=== PATIENT | male | born 1985 | race Two or more races ===

== ENCOUNTER 2025-02-05 22:32 | Emergency (ER) | payer SELFPAY ==
[~2025-02-05 22:32] MED LIST: Tetracaine HCl/PF 0.5% 4 ML Bottle ONE
[2025-02-05] MEDS: Tetracaine HCl/PF 0.5% 4 ML Bottle EYEBOTH ONE (22:40)
[2025-02-06] MEDS: Fluorescein 1 MG Ophth Strip EYEBOTH ONE ×2 (00:21)
[2025-02-06] MEDS: Polyvinyl Alcohol 1.4% Ophth Soln 15 ML Bottle EYEBOTH ONE (01:48)
== END 2025-02-06 01:59 | disposition home or self-care (01) ==
LOC: MW.ED 22:32
DX: T26.92XA Corrosion of left eye and adnexa, part unspecified, initial encounter (principal); T26.91XA Corrosion of right eye and adnexa, part unspecified, initial encounter; S05.02XA Injury of conjunctiva and corneal abrasion without foreign body, left eye, initial encounter; S05.01XA Injury of conjunctiva and corneal abrasion without foreign body, right eye, initial encounter; F17.200 Nicotine dependence, unspecified, uncomplicated; W20.8XXA Other cause of strike by thrown, projected or falling object, initial encounter
CPT/HCPCS: 99283; A9270; J3490

== ENCOUNTER → 2025-02-06 | Emergency (ER) | payer SELFPAY ==
[~2025-02-06] MED LIST changes: +Fluorescein 1 MG Ophth Strip EYEBOTH ONE; +Tetracaine HCl/PF 0.5% 4 ML Bottle EYEBOTH ONE; -Tetracaine HCl/PF 0.5% 4 ML Bottle ONE
== END ==
LOC: MW.ED 12:45
DX: Z53.21 Procedure and treatment not carried out due to patient leaving prior to being seen by health care provider (principal)